=== PATIENT | female | born 1975 | race Caucasian/White ===

== ENCOUNTER 2017-07-12 11:41 | Emergency (ER) | payer SELFPAY ==
[~2017-07-12] VITALS: Ht 157.5 cm; Wt 63.5 kg
[2017-07-12 12:40] VITALS: BP 135/72
[2017-07-12] MEDS ORDERED: KETOROLAC TROMETH 60MG/2ML VIAL IM ONE (13:45)
== END 2017-07-12 14:19 | disposition home or self-care (01) ==
LOC: ER 11:41 → EDUNIT# 11:41 → ER 14:19
DX: S16.1XXA Strain of muscle, fascia and tendon at neck level, initial encounter (principal); V49.49XA Driver injured in collision with other motor vehicles in traffic accident, initial encounter; Y93.89 Activity, other specified; Y99.8 Other external cause status; Y92.410 Unspecified street and highway as the place of occurrence of the external cause
CPT/HCPCS: 72040; 96372; 99284; J1885